=== PATIENT | female | born 1945 | race Caucasian/White ===

== ENCOUNTER 2017-02-11 10:15 | Emergency (ER) | payer OTHER ==
[~2017-02-11] VITALS: Ht 157.5 cm; Wt 59.9 kg
--- NOTE | 2017-02-11 10:20 | NUR ---
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 A/OX 4. BREATHING EVEN AND UNLABORED. NO SOB. VITALS STABLE. SAFETY AND COMFORT MEASURES IN PLACE. AWAITING MD ORDERS.
[2017-02-11] MEDS ORDERED: HYDROCODONE/APAP 5/325MG 1 EACH TABLET PO ONE (11:00)
[2017-02-11] MEDS ORDERED: ONDANSETRON 4 MG TAB.RAPDIS SL ONE (11:00)
[2017-02-11] MEDS ORDERED: ONDANSETRON 4 MG TAB.RAPDIS ONE (11:03)
[2017-02-11] MEDS ORDERED: HYDROCODONE/APAP 5/325MG 1 EACH TABLET ONE (11:03)
--- NOTE | 2017-02-11 11:05 | NUR ---
PATIENT MEDICATED PER MD ORDERS.
--- NOTE | 2017-02-11 11:46 | NUR ---
CLINICAL LAB SPECIALIST AT BEDSIDE.
--- NOTE | 2017-02-11 12:25 | NUR ---
PATIENT TAKEN TO CT VIA WHEELCHAIR.
--- NOTE | 2017-02-11 12:38 | NUR ---
PATIENT RETURNED FROM CT IN STABLE CONDITION.
[2017-02-11 13:39] VITALS: BP 100/68
== END 2017-02-11 13:40 | disposition home or self-care (01) ==
LOC: ER 10:17
DX: M47.26 Other spondylosis with radiculopathy, lumbar region (principal); I10 Essential (primary) hypertension
CPT/HCPCS: 72110; 72128; 72131; 99284; A4606; Q0162; Z7610